=== PATIENT | female | born 1965 | race Caucasian/White ===

== ENCOUNTER 2016-05-03 16:47 | Emergency (ER) | payer SELFPAY ==
[~2016-05-03] VITALS: Ht 170.2 cm; Wt 95.3 kg
[2016-05-03 16:59] VITALS: BP 132/85
== END 2016-05-03 18:05 | disposition left against medical advice (07) ==
LOC: ED 17:50
DX: M54.6 Pain in thoracic spine (principal)
CPT/HCPCS: 93005; 99281

== ENCOUNTER 2017-01-25 08:49 | Day surgery (SDC) | payer BC ==
[~2017-01-25] VITALS: Ht 170.2 cm; Wt 83.5 kg
[2017-01-25] MEDS ORDERED: LACTATED RINGERS 1,000 ML IV SCH (09:27)
[2017-01-25] MEDS ORDERED: LISI-167 PO (09:27)
[2017-01-25 09:41] VITALS: BP 122/82
[2017-01-25] MEDS ORDERED: MIDAZOLAM 1 MG/ML, 2ML ONE ×2 (09:41→10:49)
[2017-01-25] MEDS ORDERED: FENTANYL PF 100 MCG/2ML ONE (09:41)
[2017-01-25] MEDS ORDERED: LIDOCAINE-MPF 2% ,5ML ONE (09:42)
[2017-01-25] MEDS ORDERED: PROPOFOL 10 MG/ML, 20ML ONE ×2 (09:42→10:49)
[2017-01-25] MEDS ORDERED: CEFAZOLIN 1,000 MG ONE ×3 (09:43→10:49)
[2017-01-25] MEDS ORDERED: SODIUM CHLORIDE 0.9% PF 10ML ONE (09:43)
[2017-01-25] MEDS ORDERED: KETOROLAC 30 MG/1 ML ONE ×2 (09:44→10:49)
[2017-01-25] MEDS ORDERED: ONDANSETRON 2MG/ML, 2ML ONE ×4 (09:44→12:07)
[2017-01-25] MEDS ORDERED: DEXAMETHASONE 4 MG/ML, 1ML ONE ×3 (09:44→10:49)
[2017-01-25] MEDS ORDERED: ACETAMINOPHEN 325 MG TABLET PO PRN (10:00)
[2017-01-25] MEDS ORDERED: PROMETHAZINE 25 MG/ML, 1ML IV PRN (10:00)
[2017-01-25] MEDS ORDERED: FENTANYL PF 100 MCG/2ML IV PRN (10:00)
[2017-01-25] MEDS ORDERED: LABETALOL 5MG/ML, 20ML IV PRN (10:00)
[2017-01-25] MEDS ORDERED: OXYcodone 5 MG/5 ML ORAL.SOL UDC PO PRN (10:00)
[2017-01-25] MEDS ORDERED: MEPERIDINE/PF 25MG/0.5ML IVPush PRN (10:00)
[2017-01-25] MEDS ORDERED: ONDANSETRON 2MG/ML, 2ML IVPush PRN (10:00)
[2017-01-25] MEDS ORDERED: hydrALAzine 20 MG/ML, 1ML IV PRN (10:00)
[2017-01-25] MEDS ORDERED: HYDROmorphone 1 MG/ML, 1ML IV PRN (10:00)
[2017-01-25 10:16] LABS: HEMATOCRIT 44.3 % (34.6-47.8); HEMOGLOBIN 15.3 g/dL (11.7-16.4)
[2017-01-25] MEDS ORDERED: HEPARIN 1,000 UNITS/ML, 10ML ONE (10:28)
[2017-01-25] MEDS ORDERED: BUPIVACAINE/PF 0.5% ONE (10:28)
[2017-01-25] MEDS ORDERED: EPINEPHRINE 1 MG/ML, 1ML ONE (10:28)
[2017-01-25] MEDS ORDERED: KETAMINE 10 MG/ML, 20ML ONE (10:49)
[2017-01-25] MEDS ORDERED: HYDROmorphone 1 MG/ML, 1ML ONE ×2 (10:49→11:14)
[2017-01-25] MEDS ORDERED: BUPIVACAINE/PF 0.5% INFIL ONE (11:08)
[2017-01-25] MEDS ORDERED: HEPARIN 1,000 UNITS/ML, 10ML IV ONE (11:08)
[2017-01-25] MEDS ORDERED: HEPARIN 5,000 UNITS/ML, 1ML ONE (11:25)
[2017-01-25] MEDS ORDERED: OXYcodone 5 MG/5 ML ORAL.SOL UDC ONE (12:01)
[2017-01-25] MEDS ORDERED: ACETAMINOPHEN 650 MG/20.3 ML UDC ONE (12:01)
== END 2017-01-25 13:40 ==
LOC: OUT 08:49
PROVIDERS: ATTEND Surgery
DX: Z45.2 Encounter for adjustment and management of vascular access device (principal); C50.912 Malignant neoplasm of unspecified site of left female breast; C77.3 Secondary and unspecified malignant neoplasm of axilla and upper limb lymph nodes; I10 Essential (primary) hypertension; Z72.89 Other problems related to lifestyle; Z87.891 Personal history of nicotine dependence
CPT/HCPCS: 36415; 36561; 71010; 77001; 85025; 93005; C1788; J0690; J1100; J1170; J1644; J1885; J2250; J2405; J2704; J3490; J7120; J0171; J3010